=== PATIENT | female | born 1930 | race Caucasian/White ===

== ENCOUNTER 2016-02-19 09:51 | Emergency (ER) | payer MEDICARE, OTHER ==
[2016-02-19 10:27] LABS: #Basophils 0.1 thou/uL (0.0-0.2); #Eosinphils 0.1 thou/uL (0.0-0.7); #Monocytes 0.6 thou/uL (0.11-0.59); #Neutrophils 2.5 thou/uL (1.40-6.50); %Basophils 1.1 % (0.0-1.0); %Eosinophils 2.3 % (0.0-10.0); %Lymphocytes 37.8 % (21.0-51.0); %Monocytes 10.9 % (0.0-10.0); Mean Platelet Volume 8.9 fL (7.4-10.4); Red Blood Cell (RBC) Count 5.31 mill/uL (4.20-5.40); White Blood Cell (WBC) Count 5.2 thou/uL (4.8-10.8)
--- NOTE | 2016-02-19 10:35 | CT ---
NONCONTRAST HEAD CT: History: Unsteady gait. Confusion. Stroke alert. Headache. Weakness. Comparison: None. Correlation: Brain MRI 02-12-16 Technique: Noncontrast head CT is performed from skull base to skull vertex. FINDINGS: No parenchymal hemorrhage. No extraaxial hematoma. No midline shift. Basilar cisterns are patent. Age appropriate atrophy. Cortical rendon-white matter differentiation i s preserved. Ventricles and sulci are patent and symmetric. Periventricular white matter hypodensities due to chronic small vessel ischemic changes. Atherosclerosis of the cavernous carotid arteries. Intact calvarium. Adequate aeration of sinuses and mastoid air cells. IMPRESSION: 1. No acute intracranial process. 2. Results of study discussed with Dr. Aguilar 02-19-16 at 10:24 a.m. POS: [facility]
[2016-02-19 10:36] LABS: PTT 25.8 SEC (22.9-36.1); Prothrombin Time 13.1 SEC (12.0-14.7)
--- NOTE | 2016-02-19 10:39 | RAD ---
PORTABLE AP CHEST: Date: 02-19-16 History: Headache, weakness, confusion. FINDINGS: Compared to 08-14-15. Cardiac silhouette and pulmonary vasculature are within normal limits. Lungs remain clear. Vascula r calcification of the thoracic aorta. No other interval change. IMPRESSION: No acute cardiopulmonary process. POS: [facility]
[2016-02-19 10:42] LABS: ALT (SGPT) 22 U/L (0-55); AST (SGOT) 22 U/L (5-34); Alkaline Phosphatase 72 U/L (40-150); Anion Gap 13 mmol/L (10-20); BUN (Urea Nitrogen) 15 mg/dL (9.8-20.1); Bilirubin, Total 0.4 mg/dL (0.2-1.2); Calc. Creatinine Clearance 0 mL/min (70-130); Calcium 9.6 mg/dL (7.8-10.44); Carbon Dioxide 26 mmol/L (23-31); Chloride 107 mmol/L (98-107); Estimated GFR-MDRD 68; Globulin 2.9 g/dL (2.4-3.5); Protein, Total 7.2 g/dL (5.8-8.1)
[2016-02-19 11:10] LABS: Bilirubin Negative (Negative); Blood, Urine Trace (Negative); Glucose, Urine (Dipstick) Negative (Negative); Ketone, Urine Negative (Negative); Nitrite Negative (Negative); Protein, Urine (Dipstick) Negative (Neg-Trace); Urobilinogen 0.2 mg/dL (0.2-1.0)
[2016-02-19 11:12] LABS: Bacteria/HPF Rare-Few HPF (None Seen); RBC/HPF 0-3 HPF (0-3); WBC/HPF 0-3 HPF (0-3)
--- NOTE | 2016-02-19 11:23 | ERRECORD ---
[facility] H[facility] WEAK-DIZZY (10:09 ) CHIEF COMPLAINT: Patient presents for evaluation of weakness, Patient presents for evaluation of patient brought over from physical therapy; has been progressing fairly well but generalzyed increased weakness today by pt; brought to er; hx of 'small strokes' in the past. Patient relates that she gets headaches and tremeors often; but worse than usuaul headache about 3:00 am today. HISTORIAN: History provided by patient, History provided by patient's family, and therapist. LOCATION: No localizing symptoms, headache gone now. TIME COURSE: Gradual onset of symptoms. ASSOCIATED WITH: No associated symptoms. EXACERBATED BY: Patient's condition exacerbated by nothing. RELIEVED BY: Patient's condition relieved by nothing. ROS (10:11 ) CONSTITUTIONAL: Negative constitutional review of systems. EYES: Negative eye review of systems. ENT: Negative ears, nose, throat review of systems. CARDIOVASCULAR: Negative cardiovascular review of systems. RESPIRATORY: Negative respiratory review of systems. GI: Negative gastrointestinal review of systems. GENITOURINARY FEMALE: Negative genitourinary review of systems. MUSCULOSKELETAL: Negative musculoskeletal review of systems. SKIN: Negative skin review of systems. NEUROLOGIC: Negative neurologic review of systems. ENDOCRINE: Negative endocrine review of systems. NOTES: All systems reviewed, negative except as described above. PAST MEDICAL HISTORY (10:) MEDICAL HISTORY: Past medical history includes history of malignancy, primary site cervical, treated with surgery, Past medical history includes history of hypertension, which has been treated, Patient is compliant., 2 leaky heart valves per pt. FEMALE SURGICAL HISTORY: Surgical history of appendectomy, Surgical history of cholecystectomy, Surgical history of hysterectomy, Surgical history of tonsillectomy. PSYCHIATRIC HISTORY: No previous psychiatric history. SOCIAL HISTORY: Patient denies alcohol use, Patient denies drug use, Patient has no smoking history. KNOWN ALLERGIES iodine Penicillins sulfamethoxazole trimethoprim (Unconfirmed) CURRENT MEDICATIONS (10:) lisinopril: TABLET : Strength - 20 mg : ORAL &a-1R&a+25V*p+0X*[id number]*c202B*c15G*c2P*p-0X&a-25V&a+1R Name: Kerrie Rivera Bud : 1930 F85 MedRec: [id number] AcctNum: [id number] Prepared: Gloria Feb 19, 2016 18:26 by Interface Page 1 of 3 pMD [facility] EMERGENCY RECORD Patient Dose: 20 mg Oral once a day (in the evening). VITAL SIGNS VITAL SIGNS: BP: 128/53 (Lying), Pulse: 82 (Regular), Resp: 20 (Non-Labored), Temp: 98 (Oral), O2 sat: 100 on Room Air, Time: 02/19/2016 09:53. (09:53 BELE) BP: 128/53 (Lying), Pulse: 83 (Regular), Resp: 18 (Non-Labored), Temp: 98 (Oral), Pain: 0, O2 sat: 98 on Room Air, Time: 02/19/2016 10:02. (10:02 BELE) BP: 146/70, Pulse: 75, Resp: 20, Pain: 0, O2 sat: 99, Time: 02/19/2016 10:28. (10:28 IHAC) BP: 128/53, Pulse: 74, Resp: 20, Pain: 0, O2 sat: 98, Time: 02/19/2016 10:00. (10:00 IHAC) PHYSICAL EXAM (10:11 SHAN) CONSTITUTIONAL: Patient afebrile, Pulse normal, Blood pressure normal, Respiratory rate normal, Patient appears non toxic, Patient appears pain free, Patient alert and oriented to person, place and time. HEAD: Head exam included findings of head atraumatic, normocephalic. EYES: Eye exam normal, Eye exam included findings of eyelids normal to inspection, Pupils equally round and reactive to light, Extraocular muscles intact. ENT: ENT exam normal, Pharynx exam normal, Uvula exam normal, Tonsil exam normal. NECK: Neck exam normal, Neck exam included findings of normal range of motion, Trachea midline. RESPIRATORY CHEST: Respiratory and chest exam normal, Chest exam included findings of chest movement symmetrical, Chest expansion equal, Percussion normal. CARDIOVASCULAR: Cardiovascular assessment normal, Cardiovascular exam included findings of heart rate regular rate and rhythm, Heart sounds normal. ABDOMEN FEMALE: Abdominal exam normal, Abdominal exam included findings of abdomen nontender, Bowel sounds normal. BACK: Back exam normal. UPPER EXTREMITY: Upper extremity exam normal, Upper extremity exam included findings of inspection normal, Range of motion normal. LOWER EXTREMITY: Lower extremity exam normal, Lower extremity exam included findings of inspection normal, Range of motion normal. NEURO: cn 2 - 12 ok; answers questions well, oriented times 3; moves arms and legs well; mild increase in drift in left leg; tremor of hands at times (chronic per son). SKIN: Skin exam normal. PSYCHIATRIC: Psychiatric exam normal, Psychiatric exam included findings of patient oriented to person place and time, Normal affect, Judgment normal, Insight normal. DOCTOR NOTES (11:14 BIA) &a-1R&a+25V*p+0X*[id number]*c202B*c15G*c2P*p-0X&a-25V&a+1R Name: Kerrie Rivera : 1930 F85 MedRec: [id number] AcctNum: [id number] Prepared: TueFeb 19, 2016 18:26 by Interface Page 2 of 3 pMD [facility] EMERGENCY RECORD TEXT: ct of head good; on aspirin, patient defers adding stronger anticoagulants and states desire to go home understanding chance of sig. cva later. However son believes that she is at her normal and was fatigued and dizzy from trying too hard with pt. States has had carotid dopplar studies, mri, and echocardiogram recently. Will allow home care. PROBLEM LIST No recorded problems DIAGNOSIS (11:15 BIA) FINAL: PRIMARY: MUSCLE WEAKNESS GENERALIZED, ADDITIONAL: Headache, hx of cva. PRESCRIPTION No recorded prescriptions DISPOSITION PATIENT: Disposition Type: Discharge, Disposition: *Discharge Home. (11:15 BIA) Patient left the department. (11:48 [facility]) Lott: MILO=CHENTE Byrd, Emily CAMPBELL=Randee Stovall=MD Dorcas, Satish &a-1R&a+25V*p+0X*[id number]*c202B*c15G*c2P*p-0X&a-25V&a+1R Name: Kerrie Rivera : 1930 F85 MedRec: [id number] AcctNum: [id number] Prepared: Gloria Feb 19, 2016 18:26 by Interface Page 3 of 3 pMD [facility]
--- NOTE | 2016-02-19 11:30 | PICIS ---
[facility] EMERGENCY RECORD TRIAGE (TueFeb 19, 2016 10:00 BELE) TRIAGE NOTES: PATIENT WAS AT OUTPATIENT PHYSICAL THERAPY. (TueFeb 19, 2016 10:00 BELE) PATIENT: NAME: Kerrie Rivera, AGE: 85, GENDER: female, : Sat 1930, TIME OF GREET: TueFeb 19, 2016 09:52, PREFERRED LANGUAGE: Syrian, ETHNICITY: Not or , ECODE BILLING MAP: [facility] ER, SSN: [id number], Zip Code: [address], KG WEIGHT: 52.62, HEIGHT/LENGTH: 162.56cm, BMI: 19.91, PHONE: , , , PERSON ID: [id number], PCP: RICARDO. (TueFeb 19, 2016 10:00 BELE) COMPLAINT: UNSTEADY,CONFUSION. (TueFeb 19, 2016 10:00 BELE) ADMISSION: URGENCY: 2 Emergent, ADMISSION SOURCE: Other, TRANSPORT: CAR, BED: ER -04. (TueFeb 19, 2016 10:00 BELE) ASSESSMENT: Assessment: PATIENT SON REPORTS HEADACHE AT 3 A.M. (CHRONIC), BETTER THIS A.M. BUT AT THERAPY THIS MORNING THERAPIST REPORTED SHE SEEMED LESS COORDINATED THAN USUAL, BECAME MILDLY CONFUSED. B/P WAS ELEVATED REPORTEDLY 180'S/90'S AND AFTER SITTING WENT 150'S/90'2. (10:10 BELE) IMMUNIZATIONS: Flu vaccine up to date, Date of immunization: 2015, Tetanus not up to date, Pneumococcal vaccine up to date, Date of immunization: 2016, Notes: UNKNOWN. (10:10 BELE) SIRS SCORING: Heart Rate 55-109 (0), Temp range 96.8-101.1 (0), respiratory rate 12-24 (0), Latest WBC 3-14.9 (0), Mental status altered: yes (1), Total SIRS Score 1, Infection or Suspected Infection: No. (10:10 BELE) LMP: LMP: Not Applicable. (10:10 BELE) TREATMENTS IN PROGRESS: Treatments given Prehospital: TOOK OTC FOR 3 AM HEADACHE. (10:10 BELE) PROVIDERS: TRIAGE NURSE: Emily Byrd RN. (TueFeb 19, 2016 10:00 BELE) VITAL SIGNS: BP 128/53, (Lying), Pulse 82, (Regular), Resp 20, (Non-Labored), Temp 98, (Oral), O2 Sat 100, on Room Air, Time 02/19/2016 09:53. (09:53 BELE) BP 128/53, (Lying), Pulse 83, (Regular), Resp 18, (Non-Labored), Temp 98, (Oral), Pain 0, O2 Sat 98, on Room Air, Time 02/19/2016 10:02. (10:02 BELE) PREVIOUS VISIT ALLERGIES: iodine, Penicillins, Sulfa (Sulfonamide Antibiotics). (TueFeb 19, 2016 10:00 BELE) iodine, Penicillins, Sulfa (Sulfonamide Antibiotics). (10:10 BELE) KNOWN ALLERGIES iodine Penicillins sulfamethoxazole trimethoprim (Unconfirmed) CURRENT MEDICATIONS (10:01 BELE) lisinopril: &a-1R&a+25V*p+0X*r0819W*c202B*c15G*c2P*p-0X&a-25V&a+1R Name: Kerrie Rivera : 1930 F85 MedRec: [id number] AcctNum: [id number] Prepared: TueFeb 19, 2016 18:32 by Interface Page 1 of 10 pMD [facility] EMERGENCY RECORD TABLET : Strength - 20 mg : ORAL Patient Dose: 20 mg Oral once a day (in the evening). VITAL SIGNS VITAL SIGNS: BP: 128/53 (Lying), Pulse: 82 (Regular), Resp: 20 (Non-Labored), Temp: 98 (Oral), O2 sat: 100 on Room Air, Time: 02/19/2016 09:53. (09:53 BELE) BP: 128/53 (Lying), Pulse: 83 (Regular), Resp: 18 (Non-Labored), Temp: 98 (Oral), Pain: 0, O2 sat: 98 on Room Air, Time: 02/19/2016 10:02. (10:02 BELE) BP: 146/70, Pulse: 75, Resp: 20, Pain: 0, O2 sat: 99, Time: 02/19/2016 10:28. (10:28 IHAC) BP: 128/53, Pulse: 74, Resp: 20, Pain: 0, O2 sat: 98, Time: 02/19/2016 10:00. (10:00 IHAC) NURSING ASSESSMENT: CVA ASSESSMENT TOOL (10:00 BDON) CONSTITUTIONAL: Patient arrives, via hospital wheelchair, History obtained from, Became confused in PT, brought to the ER, report received, Patient appears comfortable, Patient cooperative, Patient alert, Oriented to person, place and time, Skin warm, Skin dry, Skin normal in color, Patient is well-groomed. CVA ASSESSMENT: Speech normal, Hand grasps equal, Foot press equal, Upper extremity motor strength strong, Lower extremity motor strength strong, no facial numbness, no facial droop, no numbness to upper extremities, no numbness to lower extremities, [place] coma scale:, Eye opening: (4) - Spontaneous, Verbal: (5) - Oriented/conversive, Motor: (6) - Obeys commands/Spontaneous. NIHSS: CVA assessment findings: Level of consciousness: alert, keenly responsive (0), Questions: answers both questions correctly (0), Commands: performs both tasks correctly (0), Best gaze: normal (0), Visual: no visual loss (0), Facial palsy: normal symmetrical movement (0), Motor Left Arm: no drift, arm stays 90/45 degrees for full 10 seconds (0), Motor Right Arm: no drift, arm stays 90/45 degrees for full 10 seconds (0), Motor left leg: drift, leg drifts down but does not hit bed or other support (1), Motor right leg: no drift, leg stays at 30 degrees for full five seconds (0), Limb ataxia: present in one limb (1), Sensory: normal, no sensory loss (0), Best language: no aphasia; normal (0), Dysarthria: normal (0), Extinction and Inattention: normal (0). SAFETY: Side rails up, Cart/Stretcher in lowest position, Family at bedside, Hospital ID band on, Patient in view of the nursing station. NURSING ASSESSMENT: HEADACHE (10:29 IHAC) NURSING DIAGNOSIS: Nursing diagnosis: WEAKNESS, Notes: PT. REPORTS MARKHAM DAILY X5 DAYS AND THIS MORNING SHE TOOK ASA . C/O GEN. WEAKNESS. CONSTITUTIONAL: Complex assessment performed, Patient arrives, via personal wheelchair, ACCOMPANIED BY PT. RON MARTINEZ WHO REPORTS DURING THERAPY SHE BECAME EXTREMELY WEAK AND VS REVEAL &a-1R&a+25V*p+0X*y3772O*c202B*c15G*c2P*p-0X&a-25V&a+1R Name: Kerrie Rivera : 1930 F85 MedRec: [id number] AcctNum: [id number] Prepared: [facility] Feb 19, 2016 18:32 by Interface Page 2 of 10 pMD [facility] EMERGENCY RECORD ELEVATED BP 190/96 HER PCP ONEYDA CONTACTED AND HE REQ. SHE BE SEE IN ED. HEADACHE: history of migraines, Pain is typical for migraines. NEURO: Pupils equally round and reactive to light, Able to close eyes, Face symmetrical, Speech normal, no visual changes, no facial droop, no facial numbness, no swelling, no paresthesias, Hand grasps equal, Upper extremity strength strong, Lower extremity strength strong, Foot press equal. SAFETY: Side rails up, Cart/Stretcher in lowest position, Family at bedside, Call light within reach, Hospital ID band on. NURSING PROCEDURE: BEDSIDE TESTING (10:05 MSPE) GLUCOSE: Glucose testing indicated for mental status changes, Capillary blood sample, Result (mg/dl) 111. FOLLOW-UP: After procedure, results given to Dr. Toscano. NURSING PROCEDURE: DISCHARGE NOTE (11:25 AC) DISCHARGE: Patient discharged to home, ambulating without assistance, family driving, accompanied by other family member, Summary of Care printed/ provided, Patient requested and was provided an electronic copy of Discharge Instructions, Transition record given to patient, Simple or moderate discharge teaching performed, Above person(s) verbalized understanding of discharge instructions and follow-up care, Patient discharged by. BELONGINGS: Belongings and valuables with patient at time of discharge include:, Belongings remain with patient. SAFETY: Side rails up, Cart/Stretcher in lowest position, Family at bedside, Call light within reach, Hospital ID band on. NURSING PROCEDURE: EKG CHART (10:31 MSPE) EKG: EKG indicated for unsteady; confused, 12 lead EKG performed on the left chest, done by Emily Byrd RN. FOLLOW-UP: After procedure, EKG for interpretation given to Dr. Toscano. NURSING PROCEDURE: IV PATIENT IDENITIFIER: Patient actively involved in identification process. (10:15 BDON) Patient actively involved in identification process, Patient's identity verified by patient stating name, Patient's identity verified by patient stating date, Patient's identity verified by hospital ID bracelet. (10:10 IHAC) IV SITE 1: IV established, to the right antecubital, using a 20 gauge catheter, in one attempt, Labs drawn at time of placement, labeled in the presence of the patient and sent to lab, Blood cultures drawn at time of placement, labeled in the presence of the patient and sent to lab. (10:15 BDON) IV established, Saline lock established, Labs drawn at time of placement, labeled in the presence of the patient and sent to lab, Blood &a-1R&a+25V*p+0X*d6822B*c202B*c15G*c2P*p-0X&a-25V&a+1R Name: Kerrie Rivera : 1930 F85 MedRec: [id number] AcctNum: [id number] Prepared: Gloria Feb 19, 2016 18:32 by Interface Page 3 of 10 pMD [facility] EMERGENCY RECORD cultures drawn at time of placement, labeled in the presence of the patient and sent to lab, Notes: 20G IV. ACCESSED TO RIGHT AC X2 ATTEMPT JUAN CARLOS. WELL. (10:10 IHAC) FOLLOW-UP SITE 1: After procedure, IV secured by, IV discontinued, due to patient being discharged, catheter intact. (10:10 IHAC) SAFETY: Side rails up, Cart/Stretcher in lowest position, Family at bedside, Call light within reach, Hospital ID band on. (10:10 IHAC) NURSING PROCEDURE: NURSE NOTES (10:28 IHAC) NURSES NOTES: Warm blanket given to patient, Notes: AOX3,FOLLOWING COMMANDS REPORTS CT NEG. FOR STROKE. VITAL SIGNS: BP: 146, / 70, Pulse: 75, Resp: 20, Pain: 0, O2 sat: 99. NURSING PROCEDURE: TRANSPORT TO TESTS (10:30 CCRI) TRANSPORT TO TESTS: Patient transported to CT scan, via cart, Accompanied by x-ray claim technician, Patient arrived in location at 10:26A, Patient departed location at 10:31A. ORDER DETAILS Order Name: BLOOD GLUCOSE MONITOR, Status: Done, Time: 10:05 02/19/2016, User: HUMBERTO, - Ordered for: MD Toscano Stanley, - Entered by: CHENTE Camp Marilyn - [facility] Feb 19, 2016 10:05, - Quantity: 1, Order Name: MOTOR VEHICLE INSPECTOR ED, Status: Done, Time: 10:21 02/19/2016, User: NERIS, - Ordered for: MD Toscano Stanley, - Entered by: MD Toscano Stanley - [facility] Feb 19, 2016 10:09, - Quantity: 1, Order Name: CBC with Differential, Status: Active, Time: 10:08 02/19/2016, User: BIA, - Ordered for: MD Toscano Stanley, - Entered by: MD Toscano Stanley - [facility] Feb 19, 2016 10:08, - Quantity: 1, Order Name: Comprehensive Metabolic Panel, Status: Active, Time: 10:08 02/19/2016, User: BIA, - Ordered for: MD Toscano Stanley, - Entered by: MD Toscano Stanley - [facility] Feb 19, 2016 10:08, - Quantity: 1, Order Name: CT Brain WO Con, Status: Active, Time: 10:07 02/19/2016, User: BIA, - Ordered for: MD Toscano Stanley, - Entered by: MD Toscano Stanley - [facility] Feb 19, 2016 10:07, - Quantity: 1, Order Name: Culture, Blood, Status: Active, Time: 10:18 02/19/2016, &a-1R&a+25V*p+0X*d0572T*c202B*c15G*c2P*p-0X&a-25V&a+1R Name: Kerrie Rivera : 1930 F85 MedRec: [id number] AcctNum: [id number] Prepared: TueFeb 19, 2016 18:32 by Interface Page 4 of 10 D [facility] EMERGENCY RECORD User: BIA, - Ordered for: MD Toscano Stanley, - Entered by: MD Toscano Stanley - Thu Feb 19, 2016 10:18, - Quantity: 1, Order Name: EKG 12 Lead in Emergency Room, Status: Active, Time: 10:08 02/19/2016, User: BIA, - Ordered for: MD Toscano Stanley, - Entered by: MD Toscano Stanley - Thu Feb 19, 2016 10:08, - Quantity: 1, Order Name: Protime with INR, Status: Active, Time: 10:08 02/19/2016, User: BIA, - Ordered for: MD Toscano Stanley, - Entered by: MD Toscano Stanley - Thu Feb 19, 2016 10:08, - Quantity: 1, Order Name: PTT, Status: Active, Time: 10:08 02/19/2016, User: BIA, - Ordered for: MD Toscano Stanley, - Entered by: MD Toscano Stanley - Thu Feb 19, 2016 10:08, - Quantity: 1, Order Name: SALINE LOCK, Status: Done, Time: 10:21 02/19/2016, User: BDON, - Ordered for: MD Toscano Stanley, - Entered by: MD Toscano Stanley - Thu Feb 19, 2016 10:13, - Quantity: 1, Order Name: Urinalysis with Microscopic, Status: Active, Time: 10:08 02/19/2016, User: BIA, - Ordered for: MD Toscano Stanley, - Entered by: MD Toscano Stanley - Thu Feb 19, 2016 10:08, - Quantity: 1, Order Name: XR Chest 1 View Portable, Status: Active, Time: 10:08 02/19/2016, User: BIA, - Ordered for: MD Toscano Stanley, - Entered by: MD Toscano Stanley - Thu Feb 19, 2016 10:08, - Quantity: 1. HPI WEAK-DIZZY (10:09 BIA) CHIEF COMPLAINT: Patient presents for evaluation of weakness, Patient presents for evaluation of patient brought over from physical therapy; has been progressing fairly well but generalzyed increased weakness today by pt; brought to er; hx of 'small strokes' in the past. Patient relates that she gets headaches and tremeors often; but worse than usuaul headache about 3:00 am today. HISTORIAN: History provided by patient, History provided by patient's family, and therapist. LOCATION: No localizing symptoms, headache gone now. TIME COURSE: Gradual onset of symptoms. ASSOCIATED WITH: No associated symptoms. EXACERBATED BY: Patient's condition exacerbated by nothing. RELIEVED BY: Patient's condition relieved by nothing. ROS (10:11 ) &a-1R&a+25V*p+0X*y3133W*c202B*c15G*c2P*p-0X&a-25V&a+1R Name: Kerrie Rivera : 1930 F85 MedRec: [id number] AcctNum: [id number] Prepared: Gloria Feb 19, 2016 18:32 by Interface Page 5 of 10 pMD [facility] EMERGENCY RECORD CONSTITUTIONAL: Negative constitutional review of systems. EYES: Negative eye review of systems. ENT: Negative ears, nose, throat review of systems. CARDIOVASCULAR: Negative cardiovascular review of systems. RESPIRATORY: Negative respiratory review of systems. GI: Negative gastrointestinal review of systems. GENITOURINARY FEMALE: Negative genitourinary review of systems. MUSCULOSKELETAL: Negative musculoskeletal review of systems. SKIN: Negative skin review of systems. NEUROLOGIC: Negative neurologic review of systems. ENDOCRINE: Negative endocrine review of systems. NOTES: All systems reviewed, negative except as described above. PAST MEDICAL HISTORY (10:10 BELE) MEDICAL HISTORY: Past medical history includes history of malignancy, primary site cervical, treated with surgery, Past medical history includes history of hypertension, which has been treated, Patient is compliant., 2 leaky heart valves per pt. FEMALE SURGICAL HISTORY: Surgical history of appendectomy, Surgical history of cholecystectomy, Surgical history of hysterectomy, Surgical history of tonsillectomy. PSYCHIATRIC HISTORY: No previous psychiatric history. SOCIAL HISTORY: Patient denies alcohol use, Patient denies drug use, Patient has no smoking history. PHYSICAL EXAM (:11 ) CONSTITUTIONAL: Patient afebrile, Pulse normal, Blood pressure normal, Respiratory rate normal, Patient appears non toxic, Patient appears pain free, Patient alert and oriented to person, place and time. HEAD: Head exam included findings of head atraumatic, normocephalic. EYES: Eye exam normal, Eye exam included findings of eyelids normal to inspection, Pupils equally round and reactive to light, Extraocular muscles intact. ENT: ENT exam normal, Pharynx exam normal, Uvula exam normal, Tonsil exam normal. NECK: Neck exam normal, Neck exam included findings of normal range of motion, Trachea midline. RESPIRATORY CHEST: Respiratory and chest exam normal, Chest exam included findings of chest movement symmetrical, Chest expansion equal, Percussion normal. CARDIOVASCULAR: Cardiovascular assessment normal, Cardiovascular exam included findings of heart rate regular rate and rhythm, Heart sounds normal. ABDOMEN FEMALE: Abdominal exam normal, Abdominal exam included findings of abdomen nontender, Bowel sounds normal. BACK: Back exam normal. UPPER EXTREMITY: Upper extremity exam normal, Upper extremity exam included findings of inspection normal, Range of motion normal. &a-1R&a+25V*p+0X*z9101A*c202B*c15G*c2P*p-0X&a-25V&a+1R Name: Kerrie Rivera : 1930 F85 MedRec: [id number] AcctNum: [id number] Prepared: TueFeb 19, 2016 18:32 by Interface Page 6 of 10 pMD [facility] EMERGENCY RECORD LOWER EXTREMITY: Lower extremity exam normal, Lower extremity exam included findings of inspection normal, Range of motion normal. NEURO: cn 2 - 12 ok; answers questions well, oriented times 3; moves arms and legs well; mild increase in drift in left leg; tremor of hands at times (chronic per son). SKIN: Skin exam normal. PSYCHIATRIC: Psychiatric exam normal, Psychiatric exam included findings of patient oriented to person place and time, Normal affect, Judgment normal, Insight normal. EVENTS TRANSFER: Triage to Emergency Emergency Room -04. (TueFeb 19, 2016 10:00 BELE) Removed from Emergency Emergency Room -04. (11:48 IHAC) DOCTOR NOTES (11:14 SHAN) TEXT: ct of head good; on aspirin, patient defers adding stronger anticoagulants and states desire to go home understanding chance of sig. cva later. However son believes that she is at her normal and was fatigued and dizzy from trying too hard with pt. States has had carotid dopplar studies, mri, and echocardiogram recently. Will allow home care. PROBLEM LIST No recorded problems DIAGNOSIS (11:15 [facility]) FINAL: PRIMARY: MUSCLE WEAKNESS GENERALIZED, ADDITIONAL: Headache, hx of cva. DISPOSITION PATIENT: Disposition Type: Discharge, Disposition: *Discharge Home. (11:15 SHAN) Patient left the department. (11:48 IHAC) INSTRUCTION (11:16 [facility]) DISCHARGE: WEAKNESS, UNK CAUSE. SPECIAL: 1. continue current medications 2. return if any problems 3. followup with regular provider in a few days. PRESCRIPTION No recorded prescriptions IMAGING *EKG: Image captured from scanner. (10:37 IHAC) *DISCHARGE INSTRUCTIONS RECEIPT: Image captured from scanner. (11:41 IHAC) *SUPPLY CHARGE SHEET: Image captured from scanner. (11:42 IHAC) NIHS: Image captured from scanner. (11:43 IHAC) &a-1R&a+25V*p+0X*h4252R*c202B*c15G*c2P*p-0X&a-25V&a+1R Name: Kerrie Rivera : 1930 F85 MedRec: [id number] AcctNum: [id number] Prepared: TueFeb 19, 2016 18:32 by Interface Page 7 of 10 D [facility] EMERGENCY RECORD STROKE PACKET: Image captured from scanner. (11:44 IHAC) Image captured from scanner. (11:45 IH) ADMIN DIGITAL SIGNATURE: MD Toscano Stanley. (11:16 [facility]) Randee Stovall. (11:47 [facility]) MD Tosacno Stanley. (18:23 [facility]) RESULTS RADIOLOGY: XR Chest 1 View Portable Observe DT: TueFeb 19, 2016 10:10, CXRP PORTABLE AP CHEST: Date: 02-19-16 History: Headache, weakness, confusion. FINDINGS: Compared to 08-14-15. Cardiac silhouette and pulmonary vasculature are within normal limits. Lungs remain clear. Vascula r calcification of the thoracic aorta. No other interval change. IMPRESSION: No acute cardiopulmonary process. POS: [facility] . (11:05 [facility]) LABORATORY: [place]uc[place]k Collection DT: TueFeb 19, 2016 10:10, *Accuc[place]k 111 - H mg/dL, Range (70-110). (10:17 [facility]) CBC with Differential Collection DT: TueFeb 19, 2016 10:30, White Blood Cell (WBC) Count 5.2 thou/uL, Range (4.8-10.8), Red Blood Cell (RBC) Count 5.31 mill/uL, Range (4.20-5.40), Hemoglobin 15.2 g/dL, Range (12.0-16.0), *Hematocrit 49.0 - H %, Range (36.0-47.0), Mean Corpuscular Volume 92.2 fl, Range (81.0-99.0), Mean Corpuscular Hemoglobin 28.6 pg, Range (27.0-31.0), *Mean Corpuscular HGB CONC 31.0 - L g/dL, Range (32.0-36.0), RBC Distribution Width 12.8 %, Range (11.5-14.5), Platelet Count 215 thou/uL, Range (130-400), Mean Platelet Volume 8.9 fL, Range (7.4-10.4), %Neutrophils 47.9 %, Range (42.0-75.0), %Lymphocytes 37.8 %, Range (21.0-51.0), *%Monocytes 10.9 - H %, Range (0.0-10.0), %Eosinophils 2.3 %, Range (0.0-10.0), *%Basophils 1.1 - H %, Range (0.0-1.0), #Neutrophils 2.5 thou/uL, Range (1.40-6.50), #Lymphocytes 2.0 thou/uL, Range (1.20-3.40), &a-1R&a+25V*p+0X*m0297F*c202B*c15G*c2P*p-0X&a-25V&a+1R Name: Kerrie Rivera : 1930 F85 MedRec: [id number] AcctNum: [id number] Prepared: TueFeb 19, 2016 18:32 by Interface Page 8 of 10 pMD [facility] EMERGENCY RECORD *#Monocytes 0.6 - H thou/uL, Range (0.11-0.59), #Eosinphils 0.1 thou/uL, Range (0.0-0.7), #Basophils 0.1 thou/uL, Range (0.0-0.2). (10:35 SHAN) Comprehensive Metabolic Panel Collection DT: TueFeb 19, 2016 10:30, Sodium 142 mmol/L, Range (136-145), Potassium 4.2 mmol/L, Range (3.5-5.1), Chloride 107 mmol/L, Range (98-107), Carbon Dioxide 26 mmol/L, Range (23-31), Anion Gap 13 mmol/L, Range (10-20), BUN (Urea Nitrogen) 15 mg/dL, Range (9.8-20.1), Creatinine 0.81 mg/dL, Range (0.6-1.1), Estimated GFR-MDRD 68 , Reference Range for Estimated GFR: Greater than 90, mL/min/1.73 m2 NOTE: The MDRD equation has not been validated for use, with the elderly (over 70 years of age), women, patients with, serious comorbid condition or persons with extremes of body size, muscle, mass, or nutritional status. , Glucose 103 mg/dL, Range (83-110), Calcium 9.6 mg/dL, Range (7.8-10.44), Bilirubin, Total 0.4 mg/dL, Range (0.2-1.2), Protein, Total 7.2 g/dL, Range (5.8-8.1), NOTE: Plasma values are generally 0.3 to 0.5 g/dL higher than serum values, due to the presence of fibrinogen. , Albumin 4.3 g/dL, Range (3.4-4.8), Globulin 2.9 g/dL, Range (2.4-3.5), Alb/Glob Ratio 1.5 g/dL, Range (1.2-2.2), Alkaline Phosphatase 72 U/L, Range (40-150), AST (SGOT) 22 U/L, Range (5-34), ALT (SGPT) 22 U/L, Range (0-55). (11:05 BIA) PTT Collection DT: [facility] Feb 19, 2016 10:30, See comment below , Anticoagulant? NONE Medical Necessity SUSPECT COAGULOPATHY , PTT 25.8 SEC, Range (22.9-36.1). (11: [facility]) Protime with INR Collection DT: [facility] Feb 19, 2016 10:30, See comment below , Anticoagulant? NONE Medical Necessity SUSPECT COAGULOPATHY , Prothrombin Time 13.1 SEC, Range (12.0-14.7), INR-International Normal Ratio 1.0 , ATTENTION: READ CAREFULLY , The, recommended therapeutic ranges for oral anticoagulant treatments are: , , Low Intensity: 1.5 - 2.0 Moderate Intensity: 2.0, - 3.0 &a-1R&a+25V*p+0X*m3239S*c202B*c15G*c2P*p-0X&a-25V&a+1R Name: Kerrie Rivera : 1930 F85 MedRec: [id number] AcctNum: [id number] Prepared: TueFeb 19, 2016 18:32 by Interface Page 9 of 10 D [facility] EMERGENCY RECORD High Intensity (1): 2.5 - 3.5 High, Intensity (2): 3.0 - 4.0 CRITICAL: >, 4.0 . (: [facility]) Urinalysis with Microscopic Collection DT: [facility] Feb 19, 2016 11:07, Color Yellow , Range (Yellow), Clarity Hazy , Range (Clear), Specific [place], Urine 1.010 , Range (1.005-1.030), pH, Urine 7.0 , Range (5.0-9.0), *Leukocyte Trace - H , Range (Negative), Nitrite Negative , Range (Negative), Protein, Urine (Dipstick) Negative mg/dL, Range (Neg-Trace), Glucose, Urine (Dipstick) Negative mg/dL, Range (Negative), Ketone, Urine Negative mg/dL, Range (Negative), Urobilinogen 0.2 mg/dL, Range (0.2-1.0), Bilirubin Negative , Range (Negative), *Blood, Urine Trace - H , Range (Negative), RBC/HPF 0-3 HPF, Range (0-3), WBC/HPF 0-3 HPF, Range (0-3), *Squamous Epithelial 4-6 - H HPF, Range (0-3), Bacteria/HPF Rare-Few HPF, Range (None Seen). (11:16 BIA) Lott: NERIS=CHENTE Rivera, Starr PEDRAZA=CHENTE Byrd Betty CCRI=CRISTIANO [place]an [place]e IHAC=Randee Stovall=CHENTE Camp, Gala AMEZQUITA=MD Dorcas, Satish &a-1R&a+25V*p+0X*m5951T*c202B*c15G*c2P*p-0X&a-25V&a+1R Name: Kerrie Rivera : 1930 F85 MedRec: [id number] AcctNum: [id number] Prepared: Gloria Feb 19, 2016 18:32 by Interface Page 10 of 10 pMD MTDD
== END 2016-02-19 11:25 | disposition home or self-care (01) ==
LOC: NAV ERS 09:51
DX: M62.81 Muscle weakness (generalized) (principal); R51 Headache; I10 Essential (primary) hypertension; Z86.73 Personal history of transient ischemic attack (TIA), and cerebral infarction without residual deficits; Z90.49 Acquired absence of other specified parts of digestive tract; Z90.710 Acquired absence of both cervix and uterus
CPT/HCPCS: 36416; 70450; 71010; 80053; 81001; 85025; 85610; 85730; 87040; 93005

== ENCOUNTER 2016-09-08 08:44 | Emergency (ER) | payer MEDICARE, OTHER ==
[2016-09-08 09:25] LABS: CKMB 1.9 ng/mL (0-6.6); Troponin I Less than 0.010 ng/mL (< 0.028)
[2016-09-08 09:26] LABS: ALT (SGPT) 19 U/L (8-55); AST (SGOT) 21 U/L (5-34); Albumin 3.7 g/dL (3.4-4.8); Alkaline Phosphatase 75 U/L (40-150); Anion Gap 16 mmol/L (10-20); BUN (Urea Nitrogen) 14 mg/dL (9.8-20.1); Bilirubin, Total 0.6 mg/dL (0.2-1.2); Calc. Creatinine Clearance 0 mL/min (70-130); Calcium 9.1 mg/dL (7.8-10.44); Carbon Dioxide 20 mmol/L (23-31); Chloride 105 mmol/L (98-107); Estimated GFR-MDRD 78; Globulin 2.9 g/dL (2.4-3.5); Glucose 94 mg/dL (83-110); Potassium 4.4 mmol/L (3.5-5.1); Protein, Total 6.6 g/dL (6.0-8.3); Sodium 137 mmol/L (136-145)
[2016-09-08 09:29] LABS: Prothrombin Time 13.2 SEC (12.0-14.7)
[2016-09-08 09:45] LABS: #Eosinphils 0.3 thou/uL (0.0-0.7); #Lymphocytes 1.2 thou/uL (1.20-3.40); #Monocytes 0.6 thou/uL (0.11-0.59); #Neutrophils 3.1 thou/uL (1.40-6.50); %Basophils 0.8 % (0.0-1.0); %Eosinophils 5.3 % (0.0-10.0); %Lymphocytes 23.7 % (21.0-51.0); %Monocytes 10.9 % (0.0-10.0); %Neutrophils 59.3 % (42.0-75.0); Hemoglobin 12.4 g/dL (12.0-16.0); Lipase 17 U/L (8-78); Mean Corpuscular Hemoglobin 27.3 pg (27.0-31.0); Mean Corpuscular Volume 87.9 fl (81.0-99.0); Mean Platelet Volume 7.4 fL (7.4-10.4); Platelet Count 223 thou/uL (130-400); RBC Distribution Width 12.1 % (11.5-14.5); Red Blood Cell (RBC) Count 4.53 mill/uL (4.20-5.40); White Blood Cell (WBC) Count 5.2 thou/uL (4.8-10.8)
[2016-09-08 10:00] LABS: Bilirubin Negative (Negative); Blood, Urine Moderate (Negative); Clarity Clear (Clear); Glucose, Urine (Dipstick) Negative (Negative); Leukocyte Negative (Negative); Nitrite Negative (Negative); Protein, Urine (Dipstick) Negative (Neg-Trace)
[2016-09-08 10:10] LABS: CK (CPK) 61 U/L (29-168)
[2016-09-08 10:11] LABS: Bacteria/HPF Rare-Few HPF (None Seen); RBC/HPF 0-3 HPF (0-3); Squamous Epithelial 0-3 HPF (0-3); WBC/HPF 0-3 HPF (0-3)
--- NOTE | 2016-09-08 10:20 | CT ---
BRAIN CT WITHOUT IV CONTRAST: History: 86-year-old female with altered mental status. Stroke protocol. FINDINGS: There is bilateral atrophy and chronic white matter ischemic change. No mass or acute hemorrhage. No CT evidence for acute infarct. IMPRESSION: Atrophy and chronic white matter ischemic change. Report was called to Dr. Ng at 9:18 a.m. Code RODOLFO POS: [facility]
== END 2016-09-08 10:48 | disposition home or self-care (01) ==
LOC: NAV ERS 09:17
DX: R41.82 Altered mental status, unspecified (principal); I10 Essential (primary) hypertension; Z79.899 Other long term (current) drug therapy
CPT/HCPCS: 36415; 51701; 70450; 80053; 81003; 81015; 82140; 82553; 83690; 84443; 84484; 85025; 85610; 85730; 93005; A4353

== ENCOUNTER 2017-01-16 07:59 | Emergency (ER) | payer MEDICARE, OTHER ==
[2017-01-16] MEDS ORDERED: Acetaminophen 325 MG Suppository ONE (08:27)
[2017-01-16] MEDS ORDERED: Acetaminophen 325 MG TAB ONE (08:28)
[2017-01-16] MEDS ORDERED: Lidocaine 1% 20 ML MDV ONE (09:15)
--- NOTE | 2017-01-16 10:48 | CT ---
CT OF BRAIN PERFORMED WITHOUT CONTRAST ENHANCEMENT: HISTORY: The patient tripped and fell and hit head. COMPARISON: 09/08/16 study. FINDINGS: Some generalized ventricular and sulcal prominence with decreased attenuation to the periventricular white matter. No signs of intracerebral hemorrhage or extraaxial fluid collections. Mastoid air diogo ls and visualized sinuses are clear. IMPRESSION: No acute intracranial abnormalities. POS: [facility]
--- NOTE | 2017-01-16 11:02 | RAD ---
LEFT HAND 3 VIEWS: HISTORY: The patient tripped and fell with back pain. FINDINGS: Vertebral bodies are normal in height. Degenerative osteophytes are seen along the course of the spi ne. There is disk narrowing at L2-3 and L3-4. Degenerative facet changes are present. Pedicles are intact. IMPRESSION: Moderate arthritic changes of the spine. No acute injury. POS: [facility]
--- NOTE | 2017-01-16 11:22 | RAD ---
THORACIC SPINE 3 VIEWS: HISTORY: The patient fell with back pain. FINDINGS: Bones appear somewhat demineralized. There are age-indeterminate compression changes of the T9 verte bral body. The remainder of the vertebral bodies appear normal in height. IMPRESSION: 1. Moderate arthritic changes of the spine. 2. Age-indeterminate compression changes of the T9 vertebral body. POS: [facility]
== END 2017-01-16 10:10 | disposition home or self-care (01) ==
LOC: NAV ERS 07:59
DX: S01.511A Laceration without foreign body of lip, initial encounter (principal); S01.81XA Laceration without foreign body of other part of head, initial encounter; S50.12XA Contusion of left forearm, initial encounter; Z86.73 Personal history of transient ischemic attack (TIA), and cerebral infarction without residual deficits; Z85.41 Personal history of malignant neoplasm of cervix uteri; Z79.82 Long term (current) use of aspirin; Z79.899 Other long term (current) drug therapy; W01.190A Fall on same level from slipping, tripping and stumbling with subsequent striking against furniture, initial encounter
CPT/HCPCS: 12011; 70450; 72072; 72100; J2001